=== PATIENT | male | born 1945 | race African-American/Black ===

== ENCOUNTER 2020-08-27 13:15 | Inpatient (IN) | payer MEDICARE ==
[~2020-08-27] VITALS: Ht 175.3 cm; Wt 70.3 kg
[~2020-08-27 13:15] MED LIST: AMLODIPINE BESY10 MG PO; ATORVASTATIN CA80 MG PO; CLOPIDOGREL75 MG PO; DILTIAZEM 24HR180 M1 PO; DOCUSATE SODIU100 MG PO; EFFIENT10 MG PO; FERROUS SULFAT325 MG PO; FOLIC ACID PO; LEVOTHYROXINE50 MCG PO; LISINOPRIL10 MG PO; METOPROLOL TART50 MG PO; PANTOPRAZOLE SO40 MG PO; PREDNISONE; PREDNISONE5 MG PO; PREVACID PO; [UNRECOGNIZED DRUG - REMARK]
[2020-08-27] MEDS ORDERED: SODIUM CHLORIDE 0.9% 1000ML 1,000 ML IV SCH ×3 (13:30→21:00)
[2020-08-27 13:59] LABS: BASOPHILS # (AUTO) 0.1 (0.0-0.1); BASOPHILS % 0.8 % (0.0-1.0); EOSINOPHILS # (AUTO) 0.8 (0.0-0.4); EOSINOPHILS % 11.4 % (0.0-6.0); HEMOGLOBIN 9.8 g/dL (14.0-18.0); LYMPHOCYTES # (AUTO) 1.3 (1.0-3.2); LYMPHOCYTES % 18.7 % (18.0-39.1); MEAN CORPUSCULAR HGB CONC 31.6 g/dL (31-35); MEAN CORPUSCULAR VOLUME 79.1 fL (81-99); MONOCYTES # (AUTO) 1.2 (0.2-0.8); NEUTROPHILS # (AUTO) 3.7 (2.1-6.9); NEUTROPHILS % 51.5 % (38.7-80.0); PLATELET COUNT 239 x10e3/uL (140-360); RED BLOOD COUNT 3.92 x10e6/uL (4.3-5.7); RED CELL DISTRIBUTION WIDTH 17.7 % (11.7-14.4)
[2020-08-27 15:34] LABS: BILIRUBIN,URINE SMALL (NEGATIVE); CLARITY,URINE SL CLOUDY (CLEAR); COLOR,URINE STRAW (YELLOW); KETONES,URINE NEGATIVE (NEGATIVE); LEUKOCYTE ESTERASE ,URINE NEGATIVE (NEGATIVE); NITRITE,URINE NEGATIVE (NEGATIVE); PROTEIN,URINE DIPSTICK TRACE (NEGATIVE); URINE UROBILINOGEN 0.2 mg/dL (0.2 - 1)
[2020-08-27 15:43] LABS: AMORPHOUS SEDIMENT,URINE MODERATE (FEW); BACTERIA,URINE MODERATE /HPF; EPITHELIAL CELLS,URINE FEW /LPF
[2020-08-27] MEDS ORDERED: SODIUM CHLORIDE 0.9% 500ML 500 ML IV STA (16:18)
[2020-08-27 17:22] LABS: ALBUMIN/GLOBULIN RATIO 0.7 (0.8-2.0); ANION GAP 16.2 mmol/L (8-16); CREATININE, SERUM 2.64 mg/dL (0.72-1.25); POTASSIUM 4.2 mmol/L (3.5-5.1)
[2020-08-27] MEDS ORDERED: ASPIRIN 81 MG CHEW TAB PO ONE (18:00)
[2020-08-27 18:14] LABS: FREE THYROXINE INDEX 1.5145 (1.4-3.8); THYROID STIMULATING HORMONE 0.328 uIU/mL (0.350-4.940)
[2020-08-27] MEDS ORDERED: ACETAMINOPHEN 325 MG TAB PO ONE (19:15)
[2020-08-27] MEDS ORDERED: ACETAMINOPHEN 325 MG TAB ONE (19:16)
[2020-08-27] MEDS ORDERED: VANCOMYCIN 1GM/NS 250 ML 250 ML IV ONE (19:30)
[2020-08-27] MEDS ORDERED: ACETAMINOPHEN 325 MG TAB PO PRN (19:30)
[2020-08-27] MEDS: MEROPENEM 500MG/ NS 50ML 50 ML IV SCH (19:40)
[2020-08-27 20:12] LABS: CREATINE KINASE MB 1.8 ng/mL (0-5.0)
[2020-08-27 21:38] VITALS: BP 84/53
[2020-08-27] MEDS ORDERED: PANTOPRAZOLE SOD 40 MG TABEC PO ONE (22:30)
[2020-08-27] MEDS ORDERED: PANTOPRAZOLE 40 MG 10ML VIAL IV STA (22:39)
[2020-08-27 22:50] VITALS: BP 107/63
[2020-08-28] VITALS (7 sets, daily range): BP systolic 85–146; BP diastolic 54–63
[2020-08-28] MEDS ORDERED: DOCUSATE SODIUM 100 MG CAP PO PRN ×2 (00:15→16:30)
[2020-08-28] MEDS ORDERED: HYDRALAZINE HCL 20 MG/ML VIAL IV PRN (00:15)
[2020-08-28] MEDS: MEROPENEM 500MG/ NS 50ML 50 ML IV SCH ×3 (02:05→14:08)
[2020-08-28] MEDS: PANTOPRAZOLE SOD 40 MG TABEC PO SCH ×2 (02:05→07:30)
[2020-08-28 05:05] LABS: BASOPHILS # (AUTO) 0.1 (0.0-0.1); BASOPHILS % 0.9 % (0.0-1.0); EOSINOPHILS # (AUTO) 0.9 (0.0-0.4); EOSINOPHILS % 11.9 % (0.0-6.0); HEMATOCRIT 26.1 % (38.2-49.6); HEMOGLOBIN 8.3 g/dL (14.0-18.0); LYMPHOCYTES # (AUTO) 1.5 (1.0-3.2); LYMPHOCYTES % 20.1 % (18.0-39.1); MEAN CORPUSCULAR HEMOGLOBIN 25.2 pg (28-32); MEAN CORPUSCULAR HGB CONC 31.8 g/dL (31-35); MEAN CORPUSCULAR VOLUME 79.1 fL (81-99); MONOCYTES # (AUTO) 1.2 (0.2-0.8); MONOCYTES % 16.3 % (4.4-11.3); NEUTROPHILS # (AUTO) 3.9 (2.1-6.9); NEUTROPHILS % 50.4 % (38.7-80.0); PLATELET COUNT 214 x10e3/uL (140-360); RED CELL DISTRIBUTION WIDTH 17.4 % (11.7-14.4)
[2020-08-28 05:16] LABS: INR 1.12
[2020-08-28 05:25] LABS: ALBUMIN 2.7 g/dL (3.5-5.0); ALBUMIN/GLOBULIN RATIO 0.8 (0.8-2.0); CALCIUM 8.4 mg/dL (8.4-10.2); CREATININE, SERUM 2.37 mg/dL (0.72-1.25)
[2020-08-28 05:47] LABS: CREATINE KINASE MB 3.1 ng/mL (0-5.0)
[2020-08-28] MEDS ORDERED: SODIUM CHLORIDE 0.9% 1000ML 1,000 ML IV SCH ×2 (06:00→06:15)
[2020-08-28 07:47] LABS: BASOPHILS # (AUTO) 0.1 (0.0-0.1); BASOPHILS % 0.8 % (0.0-1.0); EOSINOPHILS # (AUTO) 0.9 (0.0-0.4); HEMOGLOBIN 8.7 g/dL (14.0-18.0); LYMPHOCYTES # (AUTO) 1.3 (1.0-3.2); LYMPHOCYTES % 16.3 % (18.0-39.1); MEAN CORPUSCULAR HEMOGLOBIN 24.7 pg (28-32); MEAN CORPUSCULAR HGB CONC 31.1 g/dL (31-35); MEAN CORPUSCULAR VOLUME 79.5 fL (81-99); MONOCYTES # (AUTO) 1.5 (0.2-0.8); MONOCYTES % 19.8 % (4.4-11.3); NEUTROPHILS # (AUTO) 3.9 (2.1-6.9); NEUTROPHILS % 50.7 % (38.7-80.0); PLATELET COUNT 197 x10e3/uL (140-360); RED BLOOD COUNT 3.52 x10e6/uL (4.3-5.7); RED CELL DISTRIBUTION WIDTH 17.3 % (11.7-14.4)
[2020-08-28] MEDS: ASPIRIN 81 MG ENTERIC COATED PO SCH (09:40)
[2020-08-28] MEDS: MIDODRINE HCL 5 MG TABLET PO SCH (17:32)
[2020-08-28] MEDS: PRASUGREL 10 MG TAB PO SCH (17:32)
[2020-08-28] MEDS ORDERED: CEFTRIAXONE SOD 1 GM/NS 50 ML 50 ML IV SCH (18:00)
[2020-08-28] MEDS: CEFTRIAXONE SOD 1 GM/NS 50 ML 50 ML IV SCH (20:39)
[2020-08-28] MEDS: ATORVASTATIN 40 MG TAB PO SCH (21:01)
[2020-08-29] VITALS (7 sets, daily range): BP systolic 78–98; BP diastolic 46–64
[2020-08-29 05:08] LABS: BASOPHILS # (AUTO) 0.1 (0.0-0.1); BASOPHILS % 0.7 % (0.0-1.0); EOSINOPHILS # (AUTO) 0.9 (0.0-0.4); EOSINOPHILS % 10.9 % (0.0-6.0); HEMATOCRIT 30.7 % (38.2-49.6); HEMOGLOBIN 9.6 g/dL (14.0-18.0); LYMPHOCYTES # (AUTO) 1.5 (1.0-3.2); LYMPHOCYTES % 17.9 % (18.0-39.1); MEAN CORPUSCULAR HEMOGLOBIN 24.9 pg (28-32); MEAN CORPUSCULAR HGB CONC 31.3 g/dL (31-35); MEAN CORPUSCULAR VOLUME 79.5 fL (81-99); MONOCYTES # (AUTO) 1.1 (0.2-0.8); MONOCYTES % 13.4 % (4.4-11.3); NEUTROPHILS # (AUTO) 4.9 (2.1-6.9); NEUTROPHILS % 56.9 % (38.7-80.0); PLATELET COUNT 241 x10e3/uL (140-360); RED BLOOD COUNT 3.86 x10e6/uL (4.3-5.7); RED CELL DISTRIBUTION WIDTH 17.7 % (11.7-14.4)
[2020-08-29 05:29] LABS: ALBUMIN 2.6 g/dL (3.5-5.0); ALBUMIN/GLOBULIN RATIO 0.7 (0.8-2.0); ANION GAP 17.4 mmol/L (8-16); CALCIUM 8.7 mg/dL (8.4-10.2); CHOL/HDL RATIO 10.1 (3.9-4.7); CREATININE, SERUM 1.92 mg/dL (0.72-1.25); POTASSIUM 4.4 mmol/L (3.5-5.1)
[2020-08-29] MEDS: LEVOTHYROXINE SODIUM 50 MCG TAB PO SCH (05:44)
[2020-08-29 05:51] LABS: THYROID STIMULATING HORMONE 1.064 uIU/mL (0.350-4.940)
[2020-08-29] MEDS ORDERED: PRASUGREL 10 MG TAB PO SCH (09:00)
[2020-08-29] MEDS ORDERED: NON-FORMULARY MEDICATION (Atorvastatin Calcium 80 MG) PO SCH (09:00)
[2020-08-29] MEDS ORDERED: PANTOPRAZOLE SOD 40 MG TABEC PO SCH (09:00)
[2020-08-29] MEDS: MIDODRINE HCL 5 MG TABLET PO SCH ×3 (09:24→16:15)
[2020-08-29] MEDS: ASPIRIN 81 MG ENTERIC COATED PO SCH (09:24)
[2020-08-29] MEDS: PREDNISONE 5 MG TAB PO SCH (09:24)
[2020-08-29] MEDS: PANTOPRAZOLE SOD 40 MG TABEC PO SCH (09:24)
[2020-08-29] MEDS: PRASUGREL 10 MG TAB PO SCH (09:24)
[2020-08-29] MEDS: FERROUS SULFATE 325 MG TAB PO SCH (09:24)
[2020-08-29] MEDS: HEPARIN SOD (PORCINE) 5,000 UNIT/ML VIAL SC SCH ×2 (09:27→20:47)
[2020-08-29] MEDS: CEFTRIAXONE SOD 1 GM/NS 50 ML 50 ML IV SCH (20:41)
[2020-08-29] MEDS: ATORVASTATIN 40 MG TAB PO SCH (20:41)
[2020-08-29] MEDS: MELATONIN 5 MG TABLET PO PRN (23:53)
[2020-08-30] VITALS (8 sets, daily range): BP systolic 90–139; BP diastolic 59–89
[2020-08-30 05:52] LABS: BASOPHILS # (AUTO) 0.1 (0.0-0.1); BASOPHILS % 0.6 % (0.0-1.0); EOSINOPHILS # (AUTO) 0.3 (0.0-0.4); EOSINOPHILS % 4.4 % (0.0-6.0); HEMATOCRIT 25.7 % (38.2-49.6); HEMOGLOBIN 8.4 g/dL (14.0-18.0); LYMPHOCYTES # (AUTO) 1.2 (1.0-3.2); LYMPHOCYTES % 16.1 % (18.0-39.1); MEAN CORPUSCULAR HEMOGLOBIN 25.8 pg (28-32); MEAN CORPUSCULAR HGB CONC 32.7 g/dL (31-35); MEAN CORPUSCULAR VOLUME 79.1 fL (81-99); MONOCYTES # (AUTO) 0.8 (0.2-0.8); MONOCYTES % 10.4 % (4.4-11.3); NEUTROPHILS # (AUTO) 5.3 (2.1-6.9); NEUTROPHILS % 68.1 % (38.7-80.0); PLATELET COUNT 234 x10e3/uL (140-360); RED BLOOD COUNT 3.25 x10e6/uL (4.3-5.7); RED CELL DISTRIBUTION WIDTH 17.5 % (11.7-14.4)
[2020-08-30] MEDS: LEVOTHYROXINE SODIUM 50 MCG TAB PO SCH (05:58)
[2020-08-30 06:24] LABS: ANION GAP 15.6 mmol/L (8-16); CALCIUM 8.4 mg/dL (8.4-10.2); CREATININE, SERUM 2.12 mg/dL (0.72-1.25); POTASSIUM 4.6 mmol/L (3.5-5.1)
[2020-08-30] MEDS: PANTOPRAZOLE SOD 40 MG TABEC PO SCH (09:46)
[2020-08-30] MEDS: FERROUS SULFATE 325 MG TAB PO SCH (09:47)
[2020-08-30] MEDS: ASPIRIN 81 MG ENTERIC COATED PO SCH (09:47)
[2020-08-30] MEDS: PRASUGREL 10 MG TAB PO SCH (09:47)
[2020-08-30] MEDS: MIDODRINE HCL 5 MG TABLET PO SCH ×3 (09:47→15:29)
[2020-08-30] MEDS: PREDNISONE 5 MG TAB PO SCH (09:47)
[2020-08-30] MEDS: HEPARIN SOD (PORCINE) 5,000 UNIT/ML VIAL SC SCH ×2 (10:00→20:25)
[2020-08-30] MEDS: CEFTRIAXONE SOD 1 GM/NS 50 ML 50 ML IV SCH (20:24)
[2020-08-30] MEDS: ATORVASTATIN 40 MG TAB PO SCH (20:24)
[2020-08-30] MEDS: MELATONIN 5 MG TABLET PO PRN (20:49)
[2020-08-31] VITALS (8 sets, daily range): BP systolic 146–169; BP diastolic 72–102
[2020-08-31] MEDS: LEVOTHYROXINE SODIUM 50 MCG TAB PO SCH (05:58)
[2020-08-31 06:00] LABS: BASOPHILS # (AUTO) 0.1 (0.0-0.1); BASOPHILS % 0.6 % (0.0-1.0); EOSINOPHILS # (AUTO) 0.7 (0.0-0.4); HEMOGLOBIN 8.7 g/dL (14.0-18.0); LYMPHOCYTES # (AUTO) 1.6 (1.0-3.2); LYMPHOCYTES % 16.6 % (18.0-39.1); MEAN CORPUSCULAR HEMOGLOBIN 24.7 pg (28-32); MEAN CORPUSCULAR HGB CONC 32.2 g/dL (31-35); MEAN CORPUSCULAR VOLUME 76.7 fL (81-99); NEUTROPHILS # (AUTO) 6.2 (2.1-6.9); NEUTROPHILS % 65.2 % (38.7-80.0); PLATELET COUNT 278 x10e3/uL (140-360); RED BLOOD COUNT 3.52 x10e6/uL (4.3-5.7); RED CELL DISTRIBUTION WIDTH 17.6 % (11.7-14.4)
[2020-08-31 06:29] LABS: ANION GAP 17.6 mmol/L (8-16); CALCIUM 8.8 mg/dL (8.4-10.2); CREATININE, SERUM 2.23 mg/dL (0.72-1.25); POTASSIUM 4.6 mmol/L (3.5-5.1)
[2020-08-31] MEDS: PANTOPRAZOLE SOD 40 MG TABEC PO SCH ×2 (07:30→09:03)
[2020-08-31] MEDS: MIDODRINE HCL 5 MG TABLET PO SCH ×5 (07:34→15:59)
[2020-08-31] MEDS: ASPIRIN 81 MG ENTERIC COATED PO SCH ×2 (07:34→09:00)
[2020-08-31] MEDS: FERROUS SULFATE 325 MG TAB PO SCH ×2 (07:35→09:01)
[2020-08-31] MEDS: PREDNISONE 5 MG TAB PO SCH ×2 (07:35→09:03)
[2020-08-31] MEDS: HEPARIN SOD (PORCINE) 5,000 UNIT/ML VIAL SC SCH ×2 (09:27→21:00)
[2020-08-31] MEDS: CEFTRIAXONE SOD 1 GM/NS 50 ML 50 ML IV SCH (20:00)
[2020-08-31] MEDS: ATORVASTATIN 40 MG TAB PO SCH (20:57)
[2020-09-01] VITALS (8 sets, daily range): BP systolic 118–169; BP diastolic 72–99
[2020-09-01] MEDS: LEVOTHYROXINE SODIUM 50 MCG TAB PO SCH (06:00)
[2020-09-01] MEDS ORDERED: MIDAZOLAM HCL 2 MG/2 ML VIAL ONE ×2 (06:59→08:35)
[2020-09-01] MEDS ORDERED: FENTANYL CITRATE/PF 100MCG/2 ML INJ ONE (06:59)
[2020-09-01] MEDS ORDERED: LIDOCAINE 1% W/EPINEPHRINE 20 ML VIAL ONE ×2 (06:59→08:39)
[2020-09-01] MEDS ORDERED: SODIUM CHLORIDE 0.9% 1000ML 1,000 ML ONE (07:00)
[2020-09-01] MEDS ORDERED: SODIUM CHLORIDE 0.9% 500ML 500 ML ONE (07:00)
[2020-09-01] MEDS ORDERED: IOPAMIDOL 300MG/ML 50ML INFUS..BTL IV ONE (07:00)
[2020-09-01] MEDS ORDERED: VANCOMYCIN 1GM/NS 250 ML 0 ML ONE (07:00)
[2020-09-01] MEDS ORDERED: CEFAZOLIN SOD 1 GM VIAL ONE (07:17)
[2020-09-01] MEDS ORDERED: SODIUM CHLORIDE 0.9% 50ML 50 ML ONE (07:17)
[2020-09-01] MEDS: PANTOPRAZOLE SOD 40 MG TABEC PO SCH (07:30)
[2020-09-01] MEDS: MIDODRINE HCL 5 MG TABLET PO SCH ×3 (08:00→17:13)
[2020-09-01] MEDS: FERROUS SULFATE 325 MG TAB PO SCH (08:53)
[2020-09-01] MEDS: PREDNISONE 5 MG TAB PO SCH (08:54)
[2020-09-01] MEDS ORDERED: HYDRALAZINE HCL 20 MG/ML VIAL ONE (09:04)
[2020-09-01] MEDS: HEPARIN SOD (PORCINE) 5,000 UNIT/ML VIAL SC SCH ×2 (10:18→20:50)
[2020-09-01] MEDS ORDERED: ONDANSETRON HCL INJ 2MG/ML 2ML 2 MG/ML VIAL IV PRN (13:15)
[2020-09-01] MEDS: ATORVASTATIN 40 MG TAB PO SCH (20:50)
[2020-09-01] MEDS: CEFTRIAXONE SOD 1 GM/NS 50 ML 50 ML IV SCH (20:50)
[2020-09-02] VITALS: BP 145/91
[2020-09-02 04:00] VITALS: BP 133/81
[2020-09-02] MEDS: LEVOTHYROXINE SODIUM 50 MCG TAB PO SCH (06:11)
[2020-09-02 07:22] LABS: BASOPHILS # (AUTO) 0.1 (0.0-0.1); BASOPHILS % 0.9 % (0.0-1.0); EOSINOPHILS # (AUTO) 1.2 (0.0-0.4); EOSINOPHILS % 11.5 % (0.0-6.0); HEMATOCRIT 31.2 % (38.2-49.6); HEMOGLOBIN 9.8 g/dL (14.0-18.0); LYMPHOCYTES # (AUTO) 1.6 (1.0-3.2); LYMPHOCYTES % 15.4 % (18.0-39.1); MEAN CORPUSCULAR HEMOGLOBIN 24.3 pg (28-32); MEAN CORPUSCULAR HGB CONC 31.4 g/dL (31-35); MEAN CORPUSCULAR VOLUME 77.2 fL (81-99); MONOCYTES # (AUTO) 1.2 (0.2-0.8); MONOCYTES % 11.4 % (4.4-11.3); NEUTROPHILS # (AUTO) 6.2 (2.1-6.9); NEUTROPHILS % 59.9 % (38.7-80.0); PLATELET COUNT 300 x10e3/uL (140-360); RED BLOOD COUNT 4.04 x10e6/uL (4.3-5.7)
[2020-09-02 07:49] LABS: ALBUMIN 2.8 g/dL (3.5-5.0); ALBUMIN/GLOBULIN RATIO 0.7 (0.8-2.0); ANION GAP 16.9 mmol/L (8-16); CALCIUM 8.7 mg/dL (8.4-10.2); CREATININE, SERUM 1.67 mg/dL (0.72-1.25); POTASSIUM 3.9 mmol/L (3.5-5.1)
[2020-09-02 08:04] VITALS: BP 148/98
[2020-09-02] MEDS: PREDNISONE 5 MG TAB PO SCH (08:06)
[2020-09-02] MEDS: ASPIRIN 81 MG ENTERIC COATED PO SCH (08:06)
[2020-09-02] MEDS: FERROUS SULFATE 325 MG TAB PO SCH (08:06)
[2020-09-02] MEDS: MIDODRINE HCL 5 MG TABLET PO SCH (08:06)
[2020-09-02] MEDS: PANTOPRAZOLE SOD 40 MG TABEC PO SCH (08:06)
[2020-09-02] MEDS: HEPARIN SOD (PORCINE) 5,000 UNIT/ML VIAL SC SCH (08:12)
[2020-09-02 08:45] VITALS: BP 148/98
[2020-09-02] MEDS ORDERED: METOPROLOL TARTRATE 50 MG TAB PO SCH (10:00)
[2020-09-02 12:19] VITALS: BP 119/79
[2020-09-02] MEDS ORDERED: ONDANSETRON HCL 4 MG ORAL DISINTEGRATING TAB PO PRN (13:30)
[2020-09-02 16:06] VITALS: BP 90/64
[2020-09-02] MEDS ORDERED: METOPROLOL TART50 MG PO (16:37)
== END 2020-09-02 17:04 | disposition home health service (06) | DRG 853 ==
LOC: ER 13:22 → ERHOLD 17:59 → MED/SURG 22:08
PROVIDERS: ADMIT Internal Medicine; ATTEND Internal Medicine
PROC: 0JH606Z Insertion of Pacemaker, Dual Chamber into Chest Subcutaneous Tissue and Fascia, Open Approach (ICD-10-PCS; principal; 2020-09-01)
PROC: 02H63JZ Insertion of Pacemaker Lead into Right Atrium, Percutaneous Approach (ICD-10-PCS; 2020-09-01)
PROC: 02HK3JZ Insertion of Pacemaker Lead into Right Ventricle, Percutaneous Approach (ICD-10-PCS; 2020-09-01)
DX: A41.9 Sepsis, unspecified organism (principal); I21.A1 Myocardial infarction type 2; N17.9 Acute kidney failure, unspecified; I42.2 Other hypertrophic cardiomyopathy; I13.0 Hypertensive heart and chronic kidney disease with heart failure and stage 1 through stage 4 chronic kidney disease, or unspecified chronic kidney disease; N18.4 Chronic kidney disease, stage 4 (severe); I50.32 Chronic diastolic (congestive) heart failure; I95.9 Hypotension, unspecified; I35.1 Nonrheumatic aortic (valve) insufficiency; E86.0 Dehydration; Z95.2 Presence of prosthetic heart valve; I25.10 Atherosclerotic heart disease of native coronary artery without angina pectoris; K21.9 Gastro-esophageal reflux disease without esophagitis; E78.5 Hyperlipidemia, unspecified; D64.9 Anemia, unspecified; Z95.5 Presence of coronary angioplasty implant and graft; N18.9 Chronic kidney disease, unspecified; Z95.1 Presence of aortocoronary bypass graft; Z11.59 Encounter for screening for other viral diseases; M10.9 Gout, unspecified
CPT/HCPCS: 33208; 36415; 70450; 71045; 74176; 80048; 80053; 80061; 81001; 82550; 82553; 83605; 83735; 83880; 84145; 84436; 84443; 84479; 84484; 85025; 85610; 85730; 87040; 87086; 87400; 93005; 93306; 96360; 97139; 99152; 99153; 99285; C1785; C1898; J0360; J0690; J0696; J1644; J2250; J3010; J3370; J7030; J7040; J7512; U0002

== ENCOUNTER → 2021-02-10 | Outpatient (CLI) | payer MEDICARE, OTHER ==
[~2021-02-10] MED LIST changes: +COVID-19 VACC, MRNA(MODERNA)/PF 100 MCG/0.5 ML VIAL IM ONE
== END | disposition home or self-care (01) ==
LOC: VACCPMC 10:00
DX: Z23 Encounter for immunization (principal); Z20.822 Contact with and (suspected) exposure to COVID-19
CPT/HCPCS: 91301

== ENCOUNTER → 2021-03-10 | Outpatient (CLI) | payer MEDICARE, OTHER | END | disposition home or self-care (01) | LOC: VACCPMC 14:40 | DX: Z23 Encounter for immunization (principal); Z20.822 Contact with and (suspected) exposure to COVID-19 | CPT/HCPCS: 91301 ==

== ENCOUNTER 2021-11-29 17:29 | Inpatient (IN) | payer MEDICARE, OTHER ==
[~2021-11-29] VITALS: Ht 175.3 cm; Wt 75.3 kg
[~2021-11-29 17:29] MED LIST changes: -COVID-19 VACC, MRNA(MODERNA)/PF 100 MCG/0.5 ML VIAL IM ONE; +DEXAMETHASONE SOD PHOS INJ 4 MG/ML SDV ONE; +FENTANYL CITRATE/PF 100MCG/2 ML INJ ONE; +LIDOCAINE HCL 2% LOCAL INJ 5 ML SDV VIAL INJ ONE; +ONDANSETRON HCL INJ 2MG/ML 2ML 2 MG/ML VIAL ONE; +POVIDONE IODINE 0.05% 0.05 % ML PO ONE; +PROPOFOL IV EMULSION 10 MG/ML 20 ML VIAL ONE; +ROCURONIUM BROMIDE 10 MG/ML 5ML VIAL IV ONE; +SEVOFLURANE INHAL SOLN 250 ML PEN BTL ONE; +SUCCINYLCHOLINE CHLORIDE 20 MG/ML 10ML VIAL ONE
[2021-11-29 18:11] LABS: BASOPHILS # (AUTO) 0.1 (0.0-0.1); BASOPHILS % 0.2 % (0.0-1.0); EOSINOPHILS # (AUTO) 0.1 (0.0-0.4); EOSINOPHILS % 0.2 % (0.0-6.0); HEMATOCRIT 35.5 % (38.2-49.6); HEMOGLOBIN 11.1 g/dL (14.0-18.0); LYMPHOCYTES # (AUTO) 0.9 (1.0-3.2); LYMPHOCYTES % 3.6 % (18.0-39.1); MEAN CORPUSCULAR HEMOGLOBIN 26.6 pg (28-32); MEAN CORPUSCULAR HGB CONC 31.3 g/dL (31-35); MEAN CORPUSCULAR VOLUME 84.9 fL (81-99); MONOCYTES # (AUTO) 0.8 (0.2-0.8); MONOCYTES % 3.3 % (4.4-11.3); NEUTROPHILS # (AUTO) 22.3 (2.1-6.9); NEUTROPHILS % 91.3 % (38.7-80.0); PLATELET COUNT 272 x10e3/uL (140-360); RED BLOOD COUNT 4.18 x10e6/uL (4.3-5.7); RED CELL DISTRIBUTION WIDTH 16.4 % (11.7-14.4)
[2021-11-29 18:29] LABS: ALBUMIN 3.7 g/dL (3.5-5.0); ALBUMIN/GLOBULIN RATIO 0.9 (0.8-2.0); ANION GAP 11.7 mmol/L (8-16); CALCIUM 9.6 mg/dL (8.4-10.2); CREATININE, SERUM 1.84 mg/dL (0.72-1.25); POTASSIUM 4.7 mmol/L (3.5-5.1)
[2021-11-29 18:38] LABS: AMYLASE 48 U/L (25-125); LIPASE 9 U/L (8-78)
[2021-11-29] MEDS ORDERED: SODIUM CHLORIDE 0.9% 50ML 0 ML ONE (18:49)
[2021-11-29] MEDS ORDERED: IOPAMIDOL 370 MG/ML 200 ML INFUS..BTL INJ ONE (18:50)
[2021-11-29] MEDS ORDERED: PIPERACILLIN/TAZOBACTAM 3.375 GM in SODIUM CHLORIDE 0.9% 50ML 50 ML IV ONE (19:00)
[2021-11-29 20:08] LABS: CLARITY,URINE CLEAR (CLEAR); COLOR,URINE YELLOW (YELLOW); KETONES,URINE NEGATIVE (NEGATIVE); LEUKOCYTE ESTERASE ,URINE NEGATIVE (NEGATIVE); NITRITE,URINE NEGATIVE (NEGATIVE); PROTEIN,URINE DIPSTICK TRACE (NEGATIVE); URINE UROBILINOGEN 1 mg/dL (0.2 - 1)
[2021-11-29] MEDS ORDERED: ONDANSETRON HCL INJ 2MG/ML 2ML 2 MG/ML VIAL IV STA (20:20)
[2021-11-29 20:27] LABS: BACTERIA,URINE RARE /HPF; EPITHELIAL CELLS,URINE RARE /LPF; RBC,URINE 0-5 /HPF (0-5); WBC,URINE (MAN) 0-5 /HPF (0-5)
[2021-11-29] MEDS ORDERED: SODIUM CHLORIDE 0.9% 1000ML 1,000 ML IV ONE (20:30)
[2021-11-29] MEDS ORDERED: Morphine 2mg Syringe 2 MG/ML SYR IV ONE (20:30)
[2021-11-29 20:50] LABS: INR 1.05; PROTHROMBIN TIME 14.6 seconds (11.9-14.5)
[2021-11-29 20:51] LABS: PARTIAL THROMBOPLASTIN TIME 40.5 seconds (23.8-35.5)
[2021-11-29] MEDS ORDERED: SODIUM CHLORIDE 0.9% 1000ML 1,000 ML IV SCH (22:30)
[2021-11-29] MEDS ORDERED: ONDANSETRON HCL INJ 2MG/ML 2ML 2 MG/ML VIAL IV PRN (22:30)
[2021-11-30] VITALS (13 sets, daily range): BP systolic 109–148; BP diastolic 59–88
[2021-11-30] MEDS ORDERED: DEXTROSE 50% SYRINGE 50 ML IV PRN (01:30)
[2021-11-30] MEDS ORDERED: DOCUSATE SODIUM 100 MG CAP PO PRN (01:30)
[2021-11-30] MEDS ORDERED: POTASSIUM CHLORIDE 20 MEQ TAB CR PO PRN (01:30)
[2021-11-30] MEDS ORDERED: DIPHENHYDRAMINE HCL 25 MG CAP PO PRN (01:30)
[2021-11-30] MEDS ORDERED: ALBUTEROL/IPRATROPIUM 3 ML NEB NEB PRN (01:30)
[2021-11-30] MEDS ORDERED: SIMETHICONE 80 MG CHEW PO PRN (01:30)
[2021-11-30] MEDS ORDERED: BENZONATATE 100 MG CAP PO PRN (01:30)
[2021-11-30] MEDS ORDERED: LIDOCAINE 4% PATCH TP PRN (01:30)
[2021-11-30] MEDS: HYDRALAZINE HCL 20 MG/ML VIAL IV PRN (02:14)
[2021-11-30] MEDS ORDERED: FENTANYL CITRATE/PF 100MCG/2 ML INJ ONE (02:17)
[2021-11-30] MEDS ORDERED: HYDRALAZINE HCL 20 MG/ML VIAL ONE (02:22)
[2021-11-30] MEDS: DEXTROSE 5%/0.9% SOD CHL 1,000 ML IV SCH ×3 (04:43→17:30)
[2021-11-30] MEDS: PIPERACILLIN/TAZOBACTAM 3.375 GM in SODIUM CHLORIDE 0.9% 50ML 50 ML IV SCH ×3 (06:05→21:45)
[2021-11-30] MEDS: PANTOPRAZOLE SOD 40 MG TABEC PO SCH (07:30)
[2021-11-30 09:00] LABS: BASOPHILS % 0.2 % (0.0-1.0); HEMOGLOBIN 9.7 g/dL (14.0-18.0); LYMPHOCYTES # (AUTO) 0.5 (1.0-3.2); LYMPHOCYTES % 2.9 % (18.0-39.1); MEAN CORPUSCULAR HEMOGLOBIN 26.6 pg (28-32); MEAN CORPUSCULAR HGB CONC 30.3 g/dL (31-35); MEAN CORPUSCULAR VOLUME 87.7 fL (81-99); MONOCYTES # (AUTO) 0.4 (0.2-0.8); NEUTROPHILS # (AUTO) 17.8 (2.1-6.9); NEUTROPHILS % 94.2 % (38.7-80.0); PLATELET COUNT 201 x10e3/uL (140-360); RED BLOOD COUNT 3.65 x10e6/uL (4.3-5.7); RED CELL DISTRIBUTION WIDTH 16.5 % (11.7-14.4)
[2021-11-30 09:27] LABS: ALBUMIN 2.8 g/dL (3.5-5.0); ALBUMIN/GLOBULIN RATIO 0.8 (0.8-2.0); ANION GAP 14.4 mmol/L (8-16); CALCIUM 8.7 mg/dL (8.4-10.2); CREATININE, SERUM 1.79 mg/dL (0.72-1.25); POTASSIUM 4.4 mmol/L (3.5-5.1)
[2021-11-30] MEDS: PREDNISONE 10 MG TAB PO SCH (12:00)
[2021-11-30] MEDS: METOPROLOL TARTRATE 25 MG TAB PO SCH ×2 (14:00→21:45)
[2021-11-30] MEDS: MELATONIN 5 MG TABLET PO PRN (20:40)
[2021-12-01] VITALS (10 sets, daily range): BP systolic 118–164; BP diastolic 55–103
[2021-12-01] MEDS: DEXTROSE 5%/0.9% SOD CHL 1,000 ML IV SCH ×2 (01:30→09:48)
[2021-12-01] MEDS ORDERED: LIDOCAINE HCL 1% LOCAL INJ 20 ML VIAL ONE (01:37)
[2021-12-01 05:33] LABS: BASOPHILS % 0.1 % (0.0-1.0); HEMATOCRIT 30.2 % (38.2-49.6); HEMOGLOBIN 9.3 g/dL (14.0-18.0); LYMPHOCYTES # (AUTO) 0.8 (1.0-3.2); MEAN CORPUSCULAR HEMOGLOBIN 26.1 pg (28-32); MEAN CORPUSCULAR HGB CONC 30.8 g/dL (31-35); MEAN CORPUSCULAR VOLUME 84.6 fL (81-99); MONOCYTES # (AUTO) 0.7 (0.2-0.8); MONOCYTES % 3.5 % (4.4-11.3); NEUTROPHILS # (AUTO) 17.3 (2.1-6.9); NEUTROPHILS % 91.7 % (38.7-80.0); PLATELET COUNT 221 x10e3/uL (140-360); RED BLOOD COUNT 3.57 x10e6/uL (4.3-5.7); RED CELL DISTRIBUTION WIDTH 16.5 % (11.7-14.4)
[2021-12-01] MEDS: PIPERACILLIN/TAZOBACTAM 3.375 GM in SODIUM CHLORIDE 0.9% 50ML 50 ML IV SCH ×3 (05:55→22:10)
[2021-12-01] MEDS: METOPROLOL TARTRATE 25 MG TAB PO SCH ×3 (05:55→21:20)
[2021-12-01 06:03] LABS: ANION GAP 11.6 mmol/L (8-16); CALCIUM 8.6 mg/dL (8.4-10.2); CREATININE, SERUM 1.71 mg/dL (0.72-1.25); POTASSIUM 4.6 mmol/L (3.5-5.1)
[2021-12-01] MEDS: PANTOPRAZOLE SOD 40 MG TABEC PO SCH (09:48)
[2021-12-01] MEDS: PREDNISONE 10 MG TAB PO SCH (09:48)
[2021-12-01] MEDS: ONDANSETRON HCL INJ 2MG/ML 2ML 2 MG/ML VIAL IV PRN (09:49)
[2021-12-01] MEDS ORDERED: EPINEPHRINE HCL SYRINGE ONE (12:51)
[2021-12-01] MEDS ORDERED: HEPARIN SOD/SOD CHLORIDE 1,000 ML ONE (14:36)
[2021-12-01] MEDS: PROPOFOL IV EMULSION 10MG/ML 100 ML IV SCH (15:00)
[2021-12-01] MEDS ORDERED: MIDAZOLAM HCL 2 MG/2 ML VIAL ONE (15:24)
[2021-12-01] MEDS ORDERED: HYDRALAZINE HCL 20 MG/ML VIAL ONE (15:25)
[2021-12-01 15:55] LABS: ABG HCO3 27 mmol/L (22-26); ABG PCO2 42 mmHg (35-45); ABG PH 7.42 (7.35-7.45); ABG PO2 464 mmHg (80-105); ABG TCO2 28
[2021-12-01] MEDS ORDERED: SODIUM CHLORIDE 0.9% 50ML 50 ML ONE ×2 (15:58→16:08)
[2021-12-01] MEDS ORDERED: PIPERACILLIN/TAZOBACTAM 3.375 GM VIAL ONE (16:07)
[2021-12-01] MEDS ORDERED: ALBUMIN 25% 12.5GM 50ML 50 ML IV ONE (16:26)
[2021-12-01] MEDS: NOREPINEPHRINE 8 MG/D5W 250 ML 250 ML IV SCH (16:30)
[2021-12-01] MEDS ORDERED: EPHEDRINE SULFATE INJ 50 MG/ML VIAL ONE ×2 (16:44→19:18)
[2021-12-01] MEDS ORDERED: SODIUM CHLORIDE 0.9% 1000ML 0 ML ONE (16:46)
[2021-12-01 17:26] LABS: HEMATOCRIT 21.1 % (38.2-49.6); HEMOGLOBIN 6.5 g/dL (14.0-18.0)
[2021-12-01] MEDS ORDERED: SODIUM CHLORIDE 0.9% 1000ML 1,000 ML ONE (17:29)
[2021-12-01 17:40] LABS: ABG HCO3 19 mmol/L (22-26); ABG PCO2 35 mmHg (35-45); ABG PH 7.33 (7.35-7.45); ABG PO2 446 mmHg (80-105); ABG TCO2 20
[2021-12-01] MEDS ORDERED: SODIUM CHLORIDE 0.9% 500ML 0 ML ONE (17:53)
[2021-12-01] MEDS ORDERED: SODIUM CHLORIDE 0.9% 250ML 250 ML IV ONE (18:15)
[2021-12-01] MEDS ORDERED: DEXAMETHASONE SOD PHOS INJ 4 MG/ML SDV ONE (19:18)
[2021-12-01] MEDS ORDERED: ONDANSETRON HCL INJ 2MG/ML 2ML 2 MG/ML VIAL ONE (19:18)
[2021-12-01] MEDS ORDERED: VASOPRESSIN INJ 20 UNIT/ML VIAL ONE (19:18)
[2021-12-01] MEDS ORDERED: LIDOCAINE HCL 2% LOCAL INJ 5 ML SDV VIAL INJ ONE (19:18)
[2021-12-01] MEDS ORDERED: POVIDONE IODINE 0.05% 0.05 % ML PO ONE (19:18)
[2021-12-01] MEDS ORDERED: PHENYLEPHRINE HCL 1% 10 MG/ML VIAL ONE (19:18)
[2021-12-01] MEDS ORDERED: SEVOFLURANE INHAL SOLN 250 ML PEN BTL ONE (19:18)
[2021-12-01] MEDS ORDERED: ROCURONIUM BROMIDE 10 MG/ML 5ML VIAL IV ONE (19:18)
[2021-12-01] MEDS ORDERED: PROPOFOL IV EMULSION 10 MG/ML 20 ML VIAL ONE (19:18)
[2021-12-01] MEDS ORDERED: FENTANYL CITRATE/PF 100MCG/2 ML INJ ONE (19:29)
[2021-12-01] MEDS ORDERED: PERIPHERAL TPN FORMULA 1 BAG IV SCH (20:00)
[2021-12-02] VITALS (18 sets, daily range): BP systolic 98–150; BP diastolic 49–105
[2021-12-02] MEDS: PROPOFOL IV EMULSION 10MG/ML 100 ML IV SCH (03:44)
[2021-12-02 04:47] LABS: BASOPHILS % 0.1 % (0.0-1.0); HEMATOCRIT 27.7 % (38.2-49.6); HEMOGLOBIN 8.9 g/dL (14.0-18.0); LYMPHOCYTES # (AUTO) 0.5 (1.0-3.2); LYMPHOCYTES % 3.9 % (18.0-39.1); MEAN CORPUSCULAR HEMOGLOBIN 27.1 pg (28-32); MEAN CORPUSCULAR HGB CONC 32.1 g/dL (31-35); MEAN CORPUSCULAR VOLUME 84.2 fL (81-99); MONOCYTES # (AUTO) 0.7 (0.2-0.8); MONOCYTES % 5.8 % (4.4-11.3); NEUTROPHILS # (AUTO) 10.8 (2.1-6.9); NEUTROPHILS % 88.1 % (38.7-80.0); PLATELET COUNT 165 x10e3/uL (140-360); RED BLOOD COUNT 3.29 x10e6/uL (4.3-5.7); RED CELL DISTRIBUTION WIDTH 16.2 % (11.7-14.4)
[2021-12-02 05:06] LABS: MAGNESIUM 2.2 MG/DL (1.3-2.1); PHOSPHORUS 1.9 MG/DL (2.3-4.7)
[2021-12-02] MEDS: METOPROLOL TARTRATE 25 MG TAB PO SCH ×3 (05:34→22:00)
[2021-12-02] MEDS: PIPERACILLIN/TAZOBACTAM 3.375 GM in SODIUM CHLORIDE 0.9% 50ML 50 ML IV SCH ×3 (05:44→22:00)
[2021-12-02 06:20] LABS: ALBUMIN 2.6 g/dL (3.5-5.0); ALBUMIN/GLOBULIN RATIO 0.9 (0.8-2.0); ANION GAP 7.1 mmol/L (8-16); CREATININE, SERUM 1.54 mg/dL (0.72-1.25); POTASSIUM 4.1 mmol/L (3.5-5.1)
[2021-12-02] MEDS: PANTOPRAZOLE SOD 40 MG TABEC PO SCH (07:28)
[2021-12-02] MEDS ORDERED: PERIPHERAL TPN FORMULA 1 BAG IV SCH (08:12)
[2021-12-02] MEDS: Morphine 4mg Syringe 4 MG/ML INJ IV PRN ×2 (08:53→20:34)
[2021-12-02] MEDS: ONDANSETRON HCL INJ 2MG/ML 2ML 2 MG/ML VIAL IV PRN ×2 (08:53→20:34)
[2021-12-02 08:56] LABS: ABG HCO3 24 mmol/L (22-26); ABG PCO2 31 mmHg (35-45); ABG PO2 288 mmHg (80-105); ABG TCO2 25
[2021-12-02 13:52] LABS: ABG HCO3 23 mmol/L (22-26); ABG PCO2 34 mmHg (35-45); ABG PH 7.44 (7.35-7.45); ABG PO2 196 mmHg (80-105); ABG TCO2 24
[2021-12-02] MEDS: NOREPINEPHRINE 8 MG/D5W 250 ML 250 ML IV SCH (14:46)
[2021-12-02] MEDS: CENTRAL TPN FORMULA 1 BAG IV SCH (20:32)
[2021-12-03] VITALS (8 sets, daily range): BP systolic 94–134; BP diastolic 62–84
[2021-12-03] MEDS: METOPROLOL TARTRATE 25 MG TAB PO SCH (06:00)
[2021-12-03 06:13] LABS: BASOPHILS # (AUTO) 0.1 (0.0-0.1); BASOPHILS % 0.3 % (0.0-1.0); EOSINOPHILS # (AUTO) 0.2 (0.0-0.4); EOSINOPHILS % 1.5 % (0.0-6.0); HEMATOCRIT 31.4 % (38.2-49.6); HEMOGLOBIN 9.7 g/dL (14.0-18.0); LYMPHOCYTES % 13.9 % (18.0-39.1); MEAN CORPUSCULAR HEMOGLOBIN 26.5 pg (28-32); MEAN CORPUSCULAR HGB CONC 30.9 g/dL (31-35); MEAN CORPUSCULAR VOLUME 85.8 fL (81-99); MONOCYTES # (AUTO) 1.3 (0.2-0.8); MONOCYTES % 9.1 % (4.4-11.3); NEUTROPHILS # (AUTO) 10.1 (2.1-6.9); NEUTROPHILS % 70.7 % (38.7-80.0); PLATELET COUNT 172 x10e3/uL (140-360); RED BLOOD COUNT 3.66 x10e6/uL (4.3-5.7)
[2021-12-03] MEDS: PIPERACILLIN/TAZOBACTAM 3.375 GM in SODIUM CHLORIDE 0.9% 50ML 50 ML IV SCH ×3 (06:20→22:00)
[2021-12-03] MEDS ORDERED: SODIUM CHLORIDE 0.9% 250ML 250 ML ONE (06:24)
[2021-12-03] MEDS: HYDRALAZINE HCL 20 MG/ML VIAL IV PRN (06:32)
[2021-12-03] MEDS: CHLORASEPTIC SPRAY 177 ML BTL MM PRN ×3 (06:32→13:30)
[2021-12-03 06:41] LABS: ALBUMIN 2.9 g/dL (3.5-5.0); ALBUMIN/GLOBULIN RATIO 0.9 (0.8-2.0); CALCIUM 8.4 mg/dL (8.4-10.2); CREATININE, SERUM 1.56 mg/dL (0.72-1.25)
[2021-12-03] MEDS ORDERED: ISOSORBIDE MONO30 MG PO (06:42)
[2021-12-03] MEDS ORDERED: ZOLPIDEM TARTRAT5 MG PO (06:42)
[2021-12-03] MEDS: PANTOPRAZOLE SOD 40 MG TABEC PO SCH (08:35)
[2021-12-03] MEDS: METOPROLOL TARTRATE INJ 1 MG/ML VIAL IV SCH ×2 (12:00→17:43)
[2021-12-03] MEDS: FUROSEMIDE INJ 10 MG/ML 4 ML VIAL IV SCH ×2 (13:40→21:30)
[2021-12-03] MEDS ORDERED: PEG (High)/E-LYTE SOLN 4,000 ML BTL NG ONE (13:45)
[2021-12-03] MEDS ORDERED: Morphine 2mg Syringe 2 MG/ML SYR IV PRN (14:30)
[2021-12-03] MEDS ORDERED: DEXTROSE 10% 1,000 ML IV SCH (17:00)
[2021-12-03] MEDS: CENTRAL TPN FORMULA 1 BAG IV SCH (21:24)
[2021-12-04] VITALS (8 sets, daily range): BP systolic 100–118; BP diastolic 71–79
[2021-12-04] MEDS: METOPROLOL TARTRATE INJ 1 MG/ML VIAL IV SCH ×4 (00:51→17:56)
[2021-12-04] MEDS: PIPERACILLIN/TAZOBACTAM 3.375 GM in SODIUM CHLORIDE 0.9% 50ML 50 ML IV SCH ×3 (05:35→21:52)
[2021-12-04 07:06] LABS: ANION GAP 11.7 mmol/L (8-16); CALCIUM 8.3 mg/dL (8.4-10.2); CREATININE, SERUM 1.62 mg/dL (0.72-1.25); MAGNESIUM 2.4 MG/DL (1.3-2.1); PHOSPHORUS 1.5 MG/DL (2.3-4.7); POTASSIUM 3.7 mmol/L (3.5-5.1)
[2021-12-04] MEDS: PANTOPRAZOLE SOD 40 MG TABEC PO SCH (09:04)
[2021-12-04 12:06] LABS: BASOPHILS # (AUTO) 0.1 (0.0-0.1); BASOPHILS % 0.8 % (0.0-1.0); EOSINOPHILS # (AUTO) 0.5 (0.0-0.4); HEMATOCRIT 37.4 % (38.2-49.6); HEMOGLOBIN 11.5 g/dL (14.0-18.0); LYMPHOCYTES # (AUTO) 1.6 (1.0-3.2); LYMPHOCYTES % 10.2 % (18.0-39.1); MEAN CORPUSCULAR HGB CONC 30.7 g/dL (31-35); MEAN CORPUSCULAR VOLUME 87.8 fL (81-99); MONOCYTES # (AUTO) 1.5 (0.2-0.8); MONOCYTES % 9.4 % (4.4-11.3); NEUTROPHILS # (AUTO) 11.4 (2.1-6.9); NEUTROPHILS % 72.1 % (38.7-80.0); PLATELET COUNT 166 x10e3/uL (140-360); RED BLOOD COUNT 4.26 x10e6/uL (4.3-5.7); RED CELL DISTRIBUTION WIDTH 17.4 % (11.7-14.4)
[2021-12-04] MEDS: CENTRAL TPN FORMULA 1 BAG IV SCH (19:52)
[2021-12-05] VITALS (8 sets, daily range): BP systolic 81–129; BP diastolic 52–68
[2021-12-05] MEDS: PIPERACILLIN/TAZOBACTAM 3.375 GM in SODIUM CHLORIDE 0.9% 50ML 50 ML IV SCH ×3 (05:58→22:00)
[2021-12-05] MEDS: METOPROLOL TARTRATE INJ 1 MG/ML VIAL IV SCH ×3 (06:00→12:00)
[2021-12-05] MEDS: PANTOPRAZOLE SOD 40 MG TABEC PO SCH (09:17)
[2021-12-05] MEDS ORDERED: PEG (High)/E-LYTE SOLN 4,000 ML BTL NG ONE (10:30)
[2021-12-05] MEDS ORDERED: METOPROLOL TARTRATE INJ 1 MG/ML VIAL IV PRN (13:30)
[2021-12-05] MEDS ORDERED: SODIUM CHLORIDE 0.9% 500ML 500 ML IV ONE (13:30)
[2021-12-05] MEDS ORDERED: SODIUM PHOSPHATE IN 0.9 % NACL 15 MMOL in SODIUM CHLORIDE 0.9% 250ML 250 ML IV ONE ×2 (14:30)
[2021-12-05] MEDS ORDERED: ENOXAPARIN SOD INJ 40 MG/0.4 ML SYR SC SCH (17:00)
[2021-12-05] MEDS: PERIPHERAL TPN FORMULA 1 BAG IV SCH (20:30)
[2021-12-06] VITALS: BP 102/64
[2021-12-06 04:00] VITALS: BP 97/59
[2021-12-06 05:15] LABS: BASOPHILS # (AUTO) 0.1 (0.0-0.1); BASOPHILS % 0.4 % (0.0-1.0); EOSINOPHILS # (AUTO) 0.5 (0.0-0.4); EOSINOPHILS % 3.5 % (0.0-6.0); HEMATOCRIT 31.4 % (38.2-49.6); HEMOGLOBIN 9.4 g/dL (14.0-18.0); LYMPHOCYTES # (AUTO) 1.5 (1.0-3.2); LYMPHOCYTES % 10.3 % (18.0-39.1); MEAN CORPUSCULAR HEMOGLOBIN 26.8 pg (28-32); MEAN CORPUSCULAR HGB CONC 29.9 g/dL (31-35); MEAN CORPUSCULAR VOLUME 89.5 fL (81-99); MONOCYTES # (AUTO) 1.2 (0.2-0.8); MONOCYTES % 8.2 % (4.4-11.3); NEUTROPHILS % 73.4 % (38.7-80.0); PLATELET COUNT 165 x10e3/uL (140-360); RED BLOOD COUNT 3.51 x10e6/uL (4.3-5.7); RED CELL DISTRIBUTION WIDTH 17.7 % (11.7-14.4)
[2021-12-06 05:32] LABS: MAGNESIUM 2.2 MG/DL (1.3-2.1); PHOSPHORUS 2.4 MG/DL (2.3-4.7)
[2021-12-06] MEDS: PIPERACILLIN/TAZOBACTAM 3.375 GM in SODIUM CHLORIDE 0.9% 50ML 50 ML IV SCH ×3 (06:00→22:00)
[2021-12-06 06:03] LABS: CALCIUM 8.3 mg/dL (8.4-10.2); CREATININE, SERUM 1.46 mg/dL (0.72-1.25)
[2021-12-06 07:56] VITALS: BP 127/79
[2021-12-06 11:53] VITALS: BP 114/69
[2021-12-06] MEDS ORDERED: DEXTROSE 5% 1,000 ML IV SCH (12:30)
[2021-12-06 16:25] VITALS: BP 116/71
[2021-12-06] MEDS: ENOXAPARIN SOD INJ 40 MG/0.4 ML SYR SC SCH ×2 (17:02→21:00)
[2021-12-06 20:00] VITALS: BP_SYST 111; BP_SYST 118; BP_DIAS 69; BP_DIAS 82
[2021-12-06] MEDS: PERIPHERAL TPN FORMULA 1 BAG IV SCH (20:00)
[2021-12-07] VITALS (7 sets, daily range): BP systolic 100–123; BP diastolic 61–78
[2021-12-07 05:37] LABS: BASOPHILS % 0.3 % (0.0-1.0); EOSINOPHILS # (AUTO) 0.5 (0.0-0.4); EOSINOPHILS % 4.2 % (0.0-6.0); HEMATOCRIT 29.4 % (38.2-49.6); LYMPHOCYTES # (AUTO) 1.4 (1.0-3.2); LYMPHOCYTES % 11.3 % (18.0-39.1); MEAN CORPUSCULAR HEMOGLOBIN 26.8 pg (28-32); MEAN CORPUSCULAR HGB CONC 30.6 g/dL (31-35); MEAN CORPUSCULAR VOLUME 87.5 fL (81-99); NEUTROPHILS # (AUTO) 9.3 (2.1-6.9); NEUTROPHILS % 74.4 % (38.7-80.0); PLATELET COUNT 181 x10e3/uL (140-360); RED BLOOD COUNT 3.36 x10e6/uL (4.3-5.7); RED CELL DISTRIBUTION WIDTH 17.5 % (11.7-14.4)
[2021-12-07] MEDS: PIPERACILLIN/TAZOBACTAM 3.375 GM in SODIUM CHLORIDE 0.9% 50ML 50 ML IV SCH ×3 (06:00→22:30)
[2021-12-07 06:09] LABS: CALCIUM 8.7 mg/dL (8.4-10.2); CREATININE, SERUM 1.43 mg/dL (0.72-1.25)
[2021-12-07 06:35] LABS: MAGNESIUM 1.9 MG/DL (1.3-2.1); PHOSPHORUS 2.6 MG/DL (2.3-4.7)
[2021-12-07] MEDS: ENOXAPARIN SOD INJ 40 MG/0.4 ML SYR SC SCH ×2 (12:21→21:30)
[2021-12-07] MEDS: PERIPHERAL TPN FORMULA 1 BAG IV SCH (20:30)
[2021-12-08] VITALS (8 sets, daily range): BP systolic 92–121; BP diastolic 58–85
[2021-12-08 05:35] LABS: BASOPHILS # (AUTO) 0.1 (0.0-0.1); BASOPHILS % 0.6 % (0.0-1.0); EOSINOPHILS # (AUTO) 0.7 (0.0-0.4); EOSINOPHILS % 4.9 % (0.0-6.0); HEMOGLOBIN 8.1 g/dL (14.0-18.0); LYMPHOCYTES # (AUTO) 1.8 (1.0-3.2); LYMPHOCYTES % 12.4 % (18.0-39.1); MONOCYTES # (AUTO) 1.1 (0.2-0.8); MONOCYTES % 8.1 % (4.4-11.3); NEUTROPHILS # (AUTO) 10.3 (2.1-6.9); NEUTROPHILS % 72.4 % (38.7-80.0); PLATELET COUNT 156 x10e3/uL (140-360); RED CELL DISTRIBUTION WIDTH 17.3 % (11.7-14.4)
[2021-12-08] MEDS: PIPERACILLIN/TAZOBACTAM 3.375 GM in SODIUM CHLORIDE 0.9% 50ML 50 ML IV SCH ×3 (06:00→21:52)
[2021-12-08 06:15] LABS: ANION GAP 15.7 mmol/L (8-16); CALCIUM 9.1 mg/dL (8.4-10.2); CREATININE, SERUM 1.61 mg/dL (0.72-1.25); POTASSIUM 4.7 mmol/L (3.5-5.1)
[2021-12-08 06:32] LABS: MAGNESIUM 2.4 MG/DL (1.3-2.1); PHOSPHORUS 2.9 MG/DL (2.3-4.7)
[2021-12-08] MEDS: ENOXAPARIN SOD INJ 40 MG/0.4 ML SYR SC SCH ×2 (09:00→20:46)
[2021-12-08] MEDS: SODIUM BICARBONATE 650 MG TAB PO SCH ×3 (14:04→21:00)
[2021-12-08] MEDS: PERIPHERAL TPN FORMULA 1 BAG IV SCH (20:00)
[2021-12-09 04:00] VITALS: BP 92/65
[2021-12-09] MEDS: PIPERACILLIN/TAZOBACTAM 3.375 GM in SODIUM CHLORIDE 0.9% 50ML 50 ML IV SCH ×3 (05:17→21:14)
[2021-12-09 06:23] LABS: ANION GAP 13.3 mmol/L (8-16); CALCIUM 9.1 mg/dL (8.4-10.2); CREATININE, SERUM 1.73 mg/dL (0.72-1.25); MAGNESIUM 2.4 MG/DL (1.3-2.1); PHOSPHORUS 3.3 MG/DL (2.3-4.7); POTASSIUM 4.3 mmol/L (3.5-5.1)
[2021-12-09 08:00] VITALS: BP 114/70
[2021-12-09] MEDS: SODIUM BICARBONATE 650 MG TAB PO SCH ×3 (09:00→20:42)
[2021-12-09] MEDS: ENOXAPARIN SOD INJ 40 MG/0.4 ML SYR SC SCH ×2 (09:53→20:42)
[2021-12-09 10:45] VITALS: BP 114/70
[2021-12-09] MEDS ORDERED: FUROSEMIDE INJ 10 MG/ML 2 ML VIAL IV ONE ×2 (13:30→17:25)
[2021-12-09 13:34] VITALS: BP 90/58
[2021-12-09 16:50] VITALS: BP 106/58
[2021-12-09 20:00] VITALS: BP 82/56
[2021-12-09] MEDS: PERIPHERAL TPN FORMULA 1 BAG IV SCH (20:00)
[2021-12-10] VITALS: BP 85/57
[2021-12-10 04:00] VITALS: BP 92/63
[2021-12-10 06:21] LABS: BASOPHILS # (AUTO) 0.1 (0.0-0.1); BASOPHILS % 0.7 % (0.0-1.0); EOSINOPHILS # (AUTO) 0.7 (0.0-0.4); EOSINOPHILS % 6.2 % (0.0-6.0); HEMATOCRIT 30.3 % (38.2-49.6); HEMOGLOBIN 9.2 g/dL (14.0-18.0); LYMPHOCYTES # (AUTO) 1.4 (1.0-3.2); LYMPHOCYTES % 12.3 % (18.0-39.1); MEAN CORPUSCULAR HEMOGLOBIN 26.8 pg (28-32); MEAN CORPUSCULAR HGB CONC 30.4 g/dL (31-35); MEAN CORPUSCULAR VOLUME 88.3 fL (81-99); MONOCYTES # (AUTO) 0.8 (0.2-0.8); MONOCYTES % 7.5 % (4.4-11.3); NEUTROPHILS # (AUTO) 8.1 (2.1-6.9); NEUTROPHILS % 72.1 % (38.7-80.0); PLATELET COUNT 218 x10e3/uL (140-360); RED BLOOD COUNT 3.43 x10e6/uL (4.3-5.7); RED CELL DISTRIBUTION WIDTH 17.2 % (11.7-14.4)
[2021-12-10 06:51] LABS: ANION GAP 16.2 mmol/L (8-16); CALCIUM 9.4 mg/dL (8.4-10.2); CREATININE, SERUM 1.85 mg/dL (0.72-1.25); MAGNESIUM 2.1 MG/DL (1.3-2.1); PHOSPHORUS 3.9 MG/DL (2.3-4.7); POTASSIUM 4.2 mmol/L (3.5-5.1)
[2021-12-10 08:40] VITALS: BP 100/48
[2021-12-10 09:00] VITALS: BP 100/48
[2021-12-10] MEDS: SODIUM BICARBONATE 650 MG TAB PO SCH ×3 (09:00→21:32)
[2021-12-10] MEDS: ENOXAPARIN SOD INJ 40 MG/0.4 ML SYR SC SCH ×2 (09:47→21:32)
[2021-12-10] MEDS: ACETAMINOPHEN 325 MG TAB PO PRN (16:03)
[2021-12-10] MEDS: PERIPHERAL TPN FORMULA 1 BAG IV SCH (20:00)
[2021-12-10 20:23] VITALS: BP 116/66
[2021-12-10 23:52] VITALS: BP 124/64
[2021-12-11 04:39] VITALS: BP 140/102
[2021-12-11 06:59] LABS: BASOPHILS # (AUTO) 0.1 (0.0-0.1); BASOPHILS % 0.5 % (0.0-1.0); EOSINOPHILS # (AUTO) 0.6 (0.0-0.4); EOSINOPHILS % 4.7 % (0.0-6.0); HEMATOCRIT 32.1 % (38.2-49.6); HEMOGLOBIN 10.1 g/dL (14.0-18.0); LYMPHOCYTES # (AUTO) 1.4 (1.0-3.2); LYMPHOCYTES % 10.9 % (18.0-39.1); MEAN CORPUSCULAR HEMOGLOBIN 26.9 pg (28-32); MEAN CORPUSCULAR HGB CONC 31.5 g/dL (31-35); MEAN CORPUSCULAR VOLUME 85.6 fL (81-99); MONOCYTES # (AUTO) 0.8 (0.2-0.8); MONOCYTES % 5.8 % (4.4-11.3); NEUTROPHILS % 77.6 % (38.7-80.0); PLATELET COUNT 287 x10e3/uL (140-360); RED BLOOD COUNT 3.75 x10e6/uL (4.3-5.7); RED CELL DISTRIBUTION WIDTH 16.9 % (11.7-14.4)
[2021-12-11 07:38] LABS: ANION GAP 14.1 mmol/L (8-16); CALCIUM 9.7 mg/dL (8.4-10.2); CREATININE, SERUM 1.71 mg/dL (0.72-1.25); PHOSPHORUS 3.1 MG/DL (2.3-4.7); POTASSIUM 4.1 mmol/L (3.5-5.1)
[2021-12-11 07:50] VITALS: BP 129/79
[2021-12-11] MEDS: SODIUM BICARBONATE 650 MG TAB PO SCH ×3 (10:53→20:55)
[2021-12-11] MEDS: ENOXAPARIN SOD INJ 40 MG/0.4 ML SYR SC SCH ×2 (10:53→20:55)
[2021-12-11 11:15] VITALS: BP 113/67
[2021-12-11 15:11] VITALS: BP 87/56
[2021-12-11 20:00] VITALS: BP 116/60
[2021-12-11] MEDS ORDERED: PERIPHERAL TPN FORMULA 1 BAG IV SCH (20:00)
[2021-12-12] VITALS (7 sets, daily range): BP systolic 99–121; BP diastolic 57–78
[2021-12-12 06:30] LABS: BASOPHILS # (AUTO) 0.1 (0.0-0.1); BASOPHILS % 0.7 % (0.0-1.0); EOSINOPHILS # (AUTO) 0.9 (0.0-0.4); EOSINOPHILS % 8.6 % (0.0-6.0); HEMATOCRIT 28.5 % (38.2-49.6); HEMOGLOBIN 8.7 g/dL (14.0-18.0); LYMPHOCYTES # (AUTO) 1.5 (1.0-3.2); LYMPHOCYTES % 13.6 % (18.0-39.1); MEAN CORPUSCULAR HEMOGLOBIN 26.4 pg (28-32); MEAN CORPUSCULAR HGB CONC 30.5 g/dL (31-35); MEAN CORPUSCULAR VOLUME 86.4 fL (81-99); MONOCYTES # (AUTO) 0.8 (0.2-0.8); MONOCYTES % 7.4 % (4.4-11.3); NEUTROPHILS # (AUTO) 7.4 (2.1-6.9); NEUTROPHILS % 69.1 % (38.7-80.0); PLATELET COUNT 311 x10e3/uL (140-360); RED CELL DISTRIBUTION WIDTH 16.7 % (11.7-14.4)
[2021-12-12 07:10] LABS: ANION GAP 14.3 mmol/L (8-16); CALCIUM 9.8 mg/dL (8.4-10.2); CREATININE, SERUM 1.8 mg/dL (0.72-1.25); PHOSPHORUS 3.7 MG/DL (2.3-4.7); POTASSIUM 4.3 mmol/L (3.5-5.1)
[2021-12-12] MEDS: ENOXAPARIN SOD INJ 40 MG/0.4 ML SYR SC SCH ×2 (09:45→21:08)
[2021-12-12] MEDS: SODIUM BICARBONATE 650 MG TAB PO SCH ×3 (09:45→21:08)
[2021-12-12] MEDS: METOPROLOL TARTRATE 25 MG TAB PO SCH (17:12)
[2021-12-12] MEDS ORDERED: PERIPHERAL TPN FORMULA 1 BAG IV SCH (20:00)
[2021-12-13] VITALS (7 sets, daily range): BP systolic 106–128; BP diastolic 52–92
[2021-12-13 06:29] LABS: ANION GAP 14.2 mmol/L (8-16); CALCIUM 10.2 mg/dL (8.4-10.2); CREATININE, SERUM 1.8 mg/dL (0.72-1.25); MAGNESIUM 1.8 MG/DL (1.3-2.1); POTASSIUM 4.2 mmol/L (3.5-5.1)
[2021-12-13 06:50] LABS: PHOSPHORUS 4.1 MG/DL (2.3-4.7)
[2021-12-13 07:14] LABS: THYROID STIMULATING HORMONE 12.529 uIU/mL (0.350-4.940)
[2021-12-13] MEDS: SODIUM BICARBONATE 650 MG TAB PO SCH ×3 (09:00→21:48)
[2021-12-13] MEDS: ENOXAPARIN SOD INJ 40 MG/0.4 ML SYR SC SCH (09:00)
[2021-12-13] MEDS: METOPROLOL TARTRATE 25 MG TAB PO SCH ×2 (09:00→17:00)
[2021-12-13] MEDS ORDERED: PERIPHERAL TPN FORMULA 1 BAG IV SCH (20:00)
[2021-12-14 00:15] VITALS: BP 121/72
[2021-12-14 04:21] VITALS: BP 129/78
[2021-12-14 05:55] LABS: ANION GAP 16.3 mmol/L (8-16); CREATININE, SERUM 1.87 mg/dL (0.72-1.25); PHOSPHORUS 4.5 MG/DL (2.3-4.7); POTASSIUM 4.3 mmol/L (3.5-5.1)
[2021-12-14 08:04] VITALS: BP 122/60
[2021-12-14] MEDS: METOPROLOL TARTRATE 25 MG TAB PO SCH ×2 (09:51→16:54)
[2021-12-14] MEDS: SODIUM BICARBONATE 650 MG TAB PO SCH ×3 (09:52→21:50)
[2021-12-14 11:51] VITALS: BP 89/66
[2021-12-14 15:42] VITALS: BP 99/79
[2021-12-14 20:00] VITALS: BP 110/60
[2021-12-14] MEDS ORDERED: PERIPHERAL TPN FORMULA 1 BAG IV SCH (20:00)
[2021-12-14] MEDS: HEPARIN SOD (PORCINE) 5,000 UNIT/ML VIAL SC SCH (22:04)
[2021-12-15] VITALS (8 sets, daily range): BP systolic 91–107; BP diastolic 42–64
[2021-12-15] MEDS: METOPROLOL TARTRATE 25 MG TAB PO SCH ×2 (09:25→17:25)
[2021-12-15] MEDS: SODIUM BICARBONATE 650 MG TAB PO SCH ×3 (09:25→22:47)
[2021-12-15] MEDS: HEPARIN SOD (PORCINE) 5,000 UNIT/ML VIAL SC SCH ×2 (09:25→22:47)
[2021-12-15] MEDS ORDERED: PERIPHERAL TPN FORMULA 1 BAG IV SCH (20:00)
[2021-12-16] VITALS (7 sets, daily range): BP systolic 85–115; BP diastolic 40–58
[2021-12-16 05:51] LABS: BASOPHILS # (AUTO) 0.1 (0.0-0.1); EOSINOPHILS % 11.6 % (0.0-6.0); HEMATOCRIT 25.5 % (38.2-49.6); HEMOGLOBIN 7.7 g/dL (14.0-18.0); LYMPHOCYTES # (AUTO) 1.8 (1.0-3.2); LYMPHOCYTES % 20.1 % (18.0-39.1); MEAN CORPUSCULAR HEMOGLOBIN 26.2 pg (28-32); MEAN CORPUSCULAR HGB CONC 30.2 g/dL (31-35); MEAN CORPUSCULAR VOLUME 86.7 fL (81-99); MONOCYTES # (AUTO) 0.8 (0.2-0.8); MONOCYTES % 8.6 % (4.4-11.3); NEUTROPHILS # (AUTO) 5.1 (2.1-6.9); PLATELET COUNT 374 x10e3/uL (140-360); RED BLOOD COUNT 2.94 x10e6/uL (4.3-5.7); RED CELL DISTRIBUTION WIDTH 17.3 % (11.7-14.4)
[2021-12-16 06:19] LABS: ALBUMIN 2.1 g/dL (3.5-5.0); ALBUMIN/GLOBULIN RATIO 0.4 (0.8-2.0); ANION GAP 16.4 mmol/L (8-16); CALCIUM 10.1 mg/dL (8.4-10.2); CREATININE, SERUM 2.49 mg/dL (0.72-1.25); POTASSIUM 4.4 mmol/L (3.5-5.1)
[2021-12-16] MEDS: METOPROLOL TARTRATE 25 MG TAB PO SCH ×2 (09:00→16:10)
[2021-12-16] MEDS: HEPARIN SOD (PORCINE) 5,000 UNIT/ML VIAL SC SCH ×2 (09:18→21:38)
[2021-12-16] MEDS: MODAFINIL 100 MG TAB PO SCH (11:33)
[2021-12-16] MEDS ORDERED: SODIUM CHLORIDE 0.9% 1000ML 1,000 ML IV SCH (12:30)
[2021-12-17] VITALS (8 sets, daily range): BP systolic 80–99; BP diastolic 48–64
[2021-12-17 06:54] LABS: BASOPHILS % 0.7 % (0.0-1.0); EOSINOPHILS # (AUTO) 0.6 (0.0-0.4); EOSINOPHILS % 10.2 % (0.0-6.0); HEMATOCRIT 25.3 % (38.2-49.6); HEMOGLOBIN 7.5 g/dL (14.0-18.0); LYMPHOCYTES # (AUTO) 1.4 (1.0-3.2); LYMPHOCYTES % 22.8 % (18.0-39.1); MEAN CORPUSCULAR HEMOGLOBIN 26.3 pg (28-32); MEAN CORPUSCULAR HGB CONC 29.6 g/dL (31-35); MEAN CORPUSCULAR VOLUME 88.8 fL (81-99); MONOCYTES # (AUTO) 0.3 (0.2-0.8); MONOCYTES % 5.7 % (4.4-11.3); NEUTROPHILS # (AUTO) 3.6 (2.1-6.9); NEUTROPHILS % 60.1 % (38.7-80.0); PLATELET COUNT 365 x10e3/uL (140-360); RED BLOOD COUNT 2.85 x10e6/uL (4.3-5.7); RED CELL DISTRIBUTION WIDTH 17.1 % (11.7-14.4)
[2021-12-17 07:12] LABS: ANION GAP 15.4 mmol/L (8-16); CALCIUM 9.9 mg/dL (8.4-10.2); CREATININE, SERUM 2.87 mg/dL (0.72-1.25); POTASSIUM 4.4 mmol/L (3.5-5.1)
[2021-12-17 07:14] LABS: PHOSPHORUS 5.1 MG/DL (2.3-4.7)
[2021-12-17] MEDS: METOPROLOL TARTRATE 25 MG TAB PO SCH ×2 (09:00→17:00)
[2021-12-17] MEDS: MODAFINIL 100 MG TAB PO SCH (09:00)
[2021-12-17] MEDS: HEPARIN SOD (PORCINE) 5,000 UNIT/ML VIAL SC SCH ×2 (09:00→22:00)
[2021-12-17] MEDS ORDERED: MIDODRINE HCL 5 MG TABLET PO ONE (10:45)
[2021-12-17] MEDS ORDERED: ONDANSETRON HCL 4 MG ORAL DISINTEGRATING TAB PO PRN (11:00)
[2021-12-17] MEDS ORDERED: DEXTROSE 5% 1,000 ML IV SCH (11:00)
[2021-12-17] MEDS ORDERED: SODIUM CHLORIDE 0.9% 500ML 500 ML IV ONE (11:00)
[2021-12-17] MEDS: MIDODRINE HCL 5 MG TABLET PO SCH ×2 (12:00→16:00)
[2021-12-18] VITALS (18 sets, daily range): BP systolic 73–123; BP diastolic 46–73
[2021-12-18] MEDS: LEVOTHYROXINE SODIUM 75 MCG TAB PO SCH (06:00)
[2021-12-18] MEDS: MIDODRINE HCL 5 MG TABLET PO SCH ×3 (08:00→17:17)
[2021-12-18 08:01] LABS: BASOPHILS # (AUTO) 0.1 (0.0-0.1); EOSINOPHILS # (AUTO) 1.3 (0.0-0.4); EOSINOPHILS % 18.3 % (0.0-6.0); HEMOGLOBIN 7.8 g/dL (14.0-18.0); LYMPHOCYTES # (AUTO) 1.3 (1.0-3.2); LYMPHOCYTES % 17.8 % (18.0-39.1); MEAN CORPUSCULAR HEMOGLOBIN 26.4 pg (28-32); MEAN CORPUSCULAR VOLUME 88.1 fL (81-99); MONOCYTES # (AUTO) 0.6 (0.2-0.8); NEUTROPHILS # (AUTO) 3.8 (2.1-6.9); NEUTROPHILS % 53.6 % (38.7-80.0); PLATELET COUNT 399 x10e3/uL (140-360); RED BLOOD COUNT 2.95 x10e6/uL (4.3-5.7); RED CELL DISTRIBUTION WIDTH 16.4 % (11.7-14.4)
[2021-12-18 08:33] LABS: ALBUMIN 2.2 g/dL (3.5-5.0); ALBUMIN/GLOBULIN RATIO 0.5 (0.8-2.0); CALCIUM 9.9 mg/dL (8.4-10.2); CREATININE, SERUM 2.62 mg/dL (0.72-1.25); PHOSPHORUS 4.5 MG/DL (2.3-4.7)
[2021-12-18] MEDS: HEPARIN SOD (PORCINE) 5,000 UNIT/ML VIAL SC SCH ×2 (09:00→21:58)
[2021-12-18] MEDS: METOPROLOL TARTRATE 25 MG TAB PO SCH ×2 (09:00→17:00)
[2021-12-18] MEDS: MODAFINIL 100 MG TAB PO SCH (09:00)
[2021-12-18] MEDS ORDERED: POVIDONE IODINE 0.05% 0.05 % ML PO ONE (12:26)
[2021-12-18] MEDS ORDERED: SUCCINYLCHOLINE CHLORIDE 20 MG/ML 10ML VIAL ONE (12:26)
[2021-12-18] MEDS ORDERED: EPHEDRINE SULFATE INJ 50 MG/ML VIAL ONE (12:26)
[2021-12-18] MEDS ORDERED: PROPOFOL IV EMULSION 10 MG/ML 20 ML VIAL ONE (12:26)
[2021-12-18] MEDS: DEXTROSE 5% 1,000 ML IV SCH ×2 (12:30→21:58)
[2021-12-18 14:41] LABS: BASOPHILS # (AUTO) 0.1 (0.0-0.1); BASOPHILS % 0.9 % (0.0-1.0); EOSINOPHILS # (AUTO) 1.3 (0.0-0.4); EOSINOPHILS % 15.4 % (0.0-6.0); HEMATOCRIT 24.9 % (38.2-49.6); HEMOGLOBIN 7.4 g/dL (14.0-18.0); LYMPHOCYTES # (AUTO) 1.7 (1.0-3.2); LYMPHOCYTES % 19.5 % (18.0-39.1); MEAN CORPUSCULAR HEMOGLOBIN 26.4 pg (28-32); MEAN CORPUSCULAR HGB CONC 29.7 g/dL (31-35); MEAN CORPUSCULAR VOLUME 88.9 fL (81-99); MONOCYTES # (AUTO) 0.9 (0.2-0.8); MONOCYTES % 9.8 % (4.4-11.3); NEUTROPHILS # (AUTO) 4.7 (2.1-6.9); NEUTROPHILS % 53.9 % (38.7-80.0); PLATELET COUNT 377 x10e3/uL (140-360); RED CELL DISTRIBUTION WIDTH 16.4 % (11.7-14.4)
[2021-12-18] MEDS: NOREPINEPHRINE 8 MG/D5W 250 ML 250 ML IV SCH (16:30)
[2021-12-18] MEDS ORDERED: DEXMEDETOMIDINE 400MCG/NS100ML 100 ML IV PRN (18:45)
[2021-12-18] MEDS: ACETAMINOPHEN 325 MG TAB PO PRN (19:19)
[2021-12-19] VITALS (35 sets, daily range): BP systolic 92–126; BP diastolic 52–95
[2021-12-19] MEDS: NOREPINEPHRINE 8 MG/D5W 250 ML 250 ML IV SCH ×2 (04:10→14:42)
[2021-12-19 06:07] LABS: BASOPHILS # (AUTO) 0.1 (0.0-0.1); BASOPHILS % 0.6 % (0.0-1.0); EOSINOPHILS # (AUTO) 1.5 (0.0-0.4); EOSINOPHILS % 12.9 % (0.0-6.0); HEMATOCRIT 25.1 % (38.2-49.6); HEMOGLOBIN 7.8 g/dL (14.0-18.0); LYMPHOCYTES # (AUTO) 1.4 (1.0-3.2); LYMPHOCYTES % 11.5 % (18.0-39.1); MEAN CORPUSCULAR HEMOGLOBIN 26.5 pg (28-32); MEAN CORPUSCULAR HGB CONC 31.1 g/dL (31-35); MEAN CORPUSCULAR VOLUME 85.4 fL (81-99); MONOCYTES % 8.2 % (4.4-11.3); NEUTROPHILS # (AUTO) 7.9 (2.1-6.9); NEUTROPHILS % 66.3 % (38.7-80.0); PLATELET COUNT 415 x10e3/uL (140-360); RED BLOOD COUNT 2.94 x10e6/uL (4.3-5.7); RED CELL DISTRIBUTION WIDTH 15.8 % (11.7-14.4)
[2021-12-19 06:24] LABS: ALBUMIN 2.1 g/dL (3.5-5.0); ALBUMIN/GLOBULIN RATIO 0.5 (0.8-2.0); ANION GAP 13.6 mmol/L (8-16); CALCIUM 9.7 mg/dL (8.4-10.2); CREATININE, SERUM 2.89 mg/dL (0.72-1.25); POTASSIUM 3.6 mmol/L (3.5-5.1)
[2021-12-19 06:25] LABS: MAGNESIUM 1.7 MG/DL (1.3-2.1); PHOSPHORUS 3.6 MG/DL (2.3-4.7)
[2021-12-19] MEDS: LEVOTHYROXINE SODIUM 75 MCG TAB PO SCH (06:45)
[2021-12-19] MEDS: METOPROLOL TARTRATE 25 MG TAB PO SCH (08:03)
[2021-12-19] MEDS: DEXTROSE 5% 1,000 ML IV SCH ×2 (09:22→20:22)
[2021-12-19] MEDS: MIDODRINE HCL 5 MG TABLET PO SCH ×3 (09:22→16:27)
[2021-12-19] MEDS: HEPARIN SOD (PORCINE) 5,000 UNIT/ML VIAL SC SCH ×2 (09:24→21:01)
[2021-12-19 09:50] LABS: ABG HCO3 28 mmol/L (22-26); ABG PCO2 45 mmHg (35-45); ABG PO2 199 mmHg (80-105); ABG TCO2 29
[2021-12-19] MEDS: MODAFINIL 100 MG TAB PO SCH (10:07)
[2021-12-19] MEDS: MELATONIN 5 MG TABLET PO PRN (21:02)
[2021-12-20] VITALS (38 sets, daily range): BP systolic 70–185; BP diastolic 6–100
[2021-12-20] MEDS: LEVOTHYROXINE SODIUM 75 MCG TAB PO SCH (05:51)
[2021-12-20] MEDS: ACETAMINOPHEN 325 MG TAB PO PRN (05:52)
[2021-12-20 05:57] LABS: BASOPHILS # (AUTO) 0.1 (0.0-0.1); BASOPHILS % 0.5 % (0.0-1.0); EOSINOPHILS # (AUTO) 1.6 (0.0-0.4); EOSINOPHILS % 16.8 % (0.0-6.0); HEMATOCRIT 25.4 % (38.2-49.6); LYMPHOCYTES # (AUTO) 1.5 (1.0-3.2); LYMPHOCYTES % 16.6 % (18.0-39.1); MEAN CORPUSCULAR HGB CONC 31.5 g/dL (31-35); MEAN CORPUSCULAR VOLUME 82.5 fL (81-99); MONOCYTES # (AUTO) 0.7 (0.2-0.8); MONOCYTES % 7.8 % (4.4-11.3); NEUTROPHILS # (AUTO) 5.3 (2.1-6.9); NEUTROPHILS % 57.8 % (38.7-80.0); PLATELET COUNT 409 x10e3/uL (140-360); RED BLOOD COUNT 3.08 x10e6/uL (4.3-5.7); RED CELL DISTRIBUTION WIDTH 15.4 % (11.7-14.4)
[2021-12-20 06:40] LABS: ALBUMIN 2.1 g/dL (3.5-5.0); ALBUMIN/GLOBULIN RATIO 0.5 (0.8-2.0); ANION GAP 14.3 mmol/L (8-16); CALCIUM 9.5 mg/dL (8.4-10.2); CREATININE, SERUM 2.37 mg/dL (0.72-1.25); POTASSIUM 3.3 mmol/L (3.5-5.1)
[2021-12-20 07:38] LABS: MAGNESIUM 1.6 MG/DL (1.3-2.1); PHOSPHORUS 3.8 MG/DL (2.3-4.7)
[2021-12-20] MEDS: DEXTROSE 5% 1,000 ML IV SCH ×2 (09:56→22:17)
[2021-12-20] MEDS: MODAFINIL 100 MG TAB PO SCH (09:56)
[2021-12-20] MEDS: HEPARIN SOD (PORCINE) 5,000 UNIT/ML VIAL SC SCH ×2 (09:57→21:19)
[2021-12-20] MEDS ORDERED: MIDODRINE HCL 5 MG TABLET PO SCH (12:00)
[2021-12-20] MEDS: MIDODRINE HCL 5 MG TABLET PO SCH ×2 (13:02→16:42)
[2021-12-20] MEDS: NOREPINEPHRINE 8 MG/D5W 250 ML 250 ML IV SCH (15:00)
[2021-12-20] MEDS: MELATONIN 5 MG TABLET PO PRN (21:20)
[2021-12-21] VITALS (23 sets, daily range): BP systolic 81–120; BP diastolic 46–95
[2021-12-21 05:06] LABS: BASOPHILS # (AUTO) 0.1 (0.0-0.1); BASOPHILS % 0.5 % (0.0-1.0); EOSINOPHILS # (AUTO) 1.5 (0.0-0.4); EOSINOPHILS % 14.8 % (0.0-6.0); HEMATOCRIT 25.8 % (38.2-49.6); HEMOGLOBIN 8.2 g/dL (14.0-18.0); LYMPHOCYTES # (AUTO) 1.7 (1.0-3.2); LYMPHOCYTES % 17.1 % (18.0-39.1); MEAN CORPUSCULAR HEMOGLOBIN 26.2 pg (28-32); MEAN CORPUSCULAR HGB CONC 31.8 g/dL (31-35); MEAN CORPUSCULAR VOLUME 82.4 fL (81-99); MONOCYTES # (AUTO) 0.7 (0.2-0.8); MONOCYTES % 7.5 % (4.4-11.3); NEUTROPHILS # (AUTO) 5.9 (2.1-6.9); NEUTROPHILS % 59.8 % (38.7-80.0); PLATELET COUNT 442 x10e3/uL (140-360); RED BLOOD COUNT 3.13 x10e6/uL (4.3-5.7); RED CELL DISTRIBUTION WIDTH 15.5 % (11.7-14.4)
[2021-12-21 05:25] LABS: ALBUMIN/GLOBULIN RATIO 0.5 (0.8-2.0); ANION GAP 13.6 mmol/L (8-16); CALCIUM 9.6 mg/dL (8.4-10.2); CREATININE, SERUM 2.02 mg/dL (0.72-1.25); POTASSIUM 3.6 mmol/L (3.5-5.1)
[2021-12-21] MEDS: LEVOTHYROXINE SODIUM 75 MCG TAB PO SCH (05:53)
[2021-12-21] MEDS: MIDODRINE HCL 5 MG TABLET PO SCH ×3 (08:19→17:01)
[2021-12-21] MEDS: MODAFINIL 100 MG TAB PO SCH (08:20)
[2021-12-21] MEDS: HEPARIN SOD (PORCINE) 5,000 UNIT/ML VIAL SC SCH (08:21)
[2021-12-21] MEDS: DEXTROSE 5% 1,000 ML IV SCH (11:59)
[2021-12-21] MEDS: METOCLOPRAMIDE HCL 10 MG/2ML VIAL IV SCH ×2 (14:12→21:02)
[2021-12-21] MEDS ORDERED: SODIUM CHLORIDE 0.9% 1000ML 1,000 ML IV SCH (18:00)
[2021-12-21] MEDS: PIPERACILLIN/TAZOBACTAM 3.375 GM in SODIUM CHLORIDE 0.9% 50ML 50 ML IV SCH (21:02)
[2021-12-22 05:32] VITALS: BP 103/88
[2021-12-22 05:52] LABS: BASOPHILS # (AUTO) 0.1 (0.0-0.1); BASOPHILS % 0.5 % (0.0-1.0); EOSINOPHILS % 5.8 % (0.0-6.0); HEMATOCRIT 23.8 % (38.2-49.6); HEMOGLOBIN 7.6 g/dL (14.0-18.0); LYMPHOCYTES # (AUTO) 2.1 (1.0-3.2); LYMPHOCYTES % 12.6 % (18.0-39.1); MEAN CORPUSCULAR HEMOGLOBIN 26.5 pg (28-32); MEAN CORPUSCULAR HGB CONC 31.9 g/dL (31-35); MEAN CORPUSCULAR VOLUME 82.9 fL (81-99); MONOCYTES # (AUTO) 1.3 (0.2-0.8); MONOCYTES % 7.9 % (4.4-11.3); NEUTROPHILS # (AUTO) 11.8 (2.1-6.9); NEUTROPHILS % 72.6 % (38.7-80.0); PLATELET COUNT 459 x10e3/uL (140-360); RED BLOOD COUNT 2.87 x10e6/uL (4.3-5.7); RED CELL DISTRIBUTION WIDTH 15.8 % (11.7-14.4)
[2021-12-22] MEDS: LEVOTHYROXINE SODIUM 75 MCG TAB PO SCH (06:00)
[2021-12-22] MEDS: PIPERACILLIN/TAZOBACTAM 3.375 GM in SODIUM CHLORIDE 0.9% 50ML 50 ML IV SCH (06:10)
[2021-12-22] MEDS: METOCLOPRAMIDE HCL 10 MG/2ML VIAL IV SCH (06:10)
[2021-12-22 06:17] LABS: ANION GAP 24.2 mmol/L (8-16); CALCIUM 9.9 mg/dL (8.4-10.2); CREATININE, SERUM 3.16 mg/dL (0.72-1.25); POTASSIUM 5.2 mmol/L (3.5-5.1)
[2021-12-22 09:31] LABS: BAND NEUTROPHILS % (MANUAL) 11 %; EOSINOPHILS % (MANUAL) 8 % (0-7); LYMPHOCYTES % (MANUAL) 13 % (19-48); METAMYELOCYTES % (MANUAL) 1 % (0-0); MONOCYTES % (MANUAL) 6 % (3.4-9.0); NEUTROPHILS % (MANUAL) 60 % (40-74); PLATELET ESTIMATE ADEQUATE; PLATELET MORPHOLOGY COMMENT NORMAL; RBC MORPHOLOGY COMMENT NORMAL
[2021-12-22] MEDS ORDERED: DEXTROSE 5% 250 ML BAG IV ONE (13:22)
[2021-12-22] MEDS ORDERED: SODIUM CHLORIDE 0.9% INJ 500 ML BAG ONE (13:22)
[2021-12-22] MEDS ORDERED: DOPAmine/D5W 1.6 MG/ML 400 MG/250ML PREMIX IV ONE (13:22)
[2021-12-22] MEDS ORDERED: SODIUM CHLORIDE FLUSH 10 ML SYR ONE (13:22)
[2021-12-22] MEDS ORDERED: EPINEPHRINE HCL SYRINGE ONE (13:25)
[2021-12-22] MEDS ORDERED: SODIUM BICARBONATE 8.4% INJ 50 ML SYR ONE (13:25)
[2021-12-22] MEDS ORDERED: EPINEPHRINE HCL 1:1000 1ML 1 MG/ML AMP ONE (13:25)
[2021-12-22] MEDS ORDERED: NOREPINEPHRINE INJ 4 MG/4 ML ONE (13:25)
== END 2021-12-22 15:35 | disposition expired | DRG 329 ==
LOC: ER 17:41 → ERHOLD 22:24 → MED/SURG2 11-30 02:44 → ICU 12-01 19:27 → MED/SURG 12-02 11:43 → IMCU 12-02 14:17 → MED/SURG3 12-03 20:06 → ICU 12-18 15:56 → MED/SURG3 12-21 11:05
PROVIDERS: ADMIT Internal Medicine; ATTEND Internal Medicine
PROC: 0DBM0ZZ Excision of Descending Colon, Open Approach (ICD-10-PCS; 2021-11-29)
PROC: 0DBN0ZZ Excision of Sigmoid Colon, Open Approach (ICD-10-PCS; 2021-11-29)
PROC: 0D1L0Z4 Bypass Transverse Colon to Cutaneous, Open Approach (ICD-10-PCS; 2021-11-29)
PROC: 3E1H78Z Irrigation of Lower GI using Irrigating Substance, Via Natural or Artificial Opening (ICD-10-PCS; 2021-11-30)
PROC: 0BH18EZ Insertion of Endotracheal Airway into Trachea, Via Natural or Artificial Opening Endoscopic (ICD-10-PCS; 2021-12-01)
PROC: 30233N1 Transfusion of Nonautologous Red Blood Cells into Peripheral Vein, Percutaneous Approach (ICD-10-PCS; 2021-12-01)
PROC: 3E0436Z Introduction of Nutritional Substance into Central Vein, Percutaneous Approach (ICD-10-PCS; 2021-12-01)
PROC: 0DCP7ZZ Extirpation of Matter from Rectum, Via Natural or Artificial Opening (ICD-10-PCS; 2021-12-01)
PROC: 02HV33Z Insertion of Infusion Device into Superior Vena Cava, Percutaneous Approach (ICD-10-PCS; 2021-12-01)
PROC: 3E043XZ Introduction of Vasopressor into Central Vein, Percutaneous Approach (ICD-10-PCS; 2021-12-01)
PROC: 5A1935Z Respiratory Ventilation, Less than 24 Consecutive Hours (ICD-10-PCS; principal; 2021-12-01 12:30)
PROC: 5A1935Z Respiratory Ventilation, Less than 24 Consecutive Hours (ICD-10-PCS; 2021-12-18)
PROC: 0BH18EZ Insertion of Endotracheal Airway into Trachea, Via Natural or Artificial Opening Endoscopic (ICD-10-PCS; 2021-12-18)
PROC: 0DH63UZ Insertion of Feeding Device into Stomach, Percutaneous Approach (ICD-10-PCS; 2021-12-18)
PROC: 5A12012 Performance of Cardiac Output, Single, Manual (ICD-10-PCS; 2021-12-22)
PROC: 5A1935Z Respiratory Ventilation, Less than 24 Consecutive Hours (ICD-10-PCS; 2021-12-22)
PROC: 0BH18EZ Insertion of Endotracheal Airway into Trachea, Via Natural or Artificial Opening Endoscopic (ICD-10-PCS; 2021-12-22)
PROC: 5A2204Z Restoration of Cardiac Rhythm, Single (ICD-10-PCS; 2021-12-22)
DX: K57.20 Diverticulitis of large intestine with perforation and abscess without bleeding (principal); J69.0 Pneumonitis due to inhalation of food and vomit; K65.0 Generalized (acute) peritonitis; J95.821 Acute postprocedural respiratory failure; E43 Unspecified severe protein-calorie malnutrition; Q25.1 Coarctation of aorta; I42.1 Obstructive hypertrophic cardiomyopathy; I82.622 Acute embolism and thrombosis of deep veins of left upper extremity; N17.9 Acute kidney failure, unspecified; I50.22 Chronic systolic (congestive) heart failure; D62 Acute posthemorrhagic anemia; N18.4 Chronic kidney disease, stage 4 (severe); R10.0 Acute abdomen; R19.8 Other specified symptoms and signs involving the digestive system and abdomen; I25.10 Atherosclerotic heart disease of native coronary artery without angina pectoris; Z95.810 Presence of automatic (implantable) cardiac defibrillator; Z95.2 Presence of prosthetic heart valve; K56.41 Fecal impaction; I11.0 Hypertensive heart disease with heart failure; I46.9 Cardiac arrest, cause unspecified; R62.7 Adult failure to thrive; Z95.1 Presence of aortocoronary bypass graft; Z95.5 Presence of coronary angioplasty implant and graft; Z79.52 Long term (current) use of systemic steroids
CPT/HCPCS: 31500; 36415; 36600; 71045; 74018; 74176; 74230; 80048; 80053; 81001; 82150; 82805; 82948; 83605; 83690; 83735; 84100; 84443; 85014; 85018; 85025; 85610; 85730; 86850; 86900; 86920; 87040; 88307; 92950; 93005; 93971; 94002; 94799; 96367; 97139; 99284; J0171; J0330; J0360; J1100; J1644; J1650; J1940; J2001; J2250; J2270; J2370; J2405; J2543; J2765; J3010; J7030; J7040; J7042; J7050; J7070; J7512; P9016; Q9967; U0002